=== PATIENT | female | born 1960 ===

== ENCOUNTER 2023-04-18 15:14 | Inpatient (IN) | payer OTHER ==
[~2023-04-18] VITALS: Ht 152.4 cm; Wt 95.3 kg
[2023-04-19] MEDS ORDERED: TOPROL XL50 M1 PO (10:36)
[2023-04-19] MEDS ORDERED: SYNTHROID150 MCG PO (10:36)
[2023-04-29] MEDS ORDERED: PERCOCET 5-3251 EACH PO (15:10)
== END 2023-04-29 16:35 | disposition home or self-care (01) | DRG 329 ==
LOC: SURG 04-21 09:00 → O/R 04-27 11:34 → SURG 04-27 13:24 → SURH 04-28 14:53
PROVIDERS: ADMIT Surgery; ATTEND Surgery
PROC: 0DBP4ZZ Excision of Rectum, Percutaneous Endoscopic Approach (ICD-10-PCS; 2023-04-27)
PROC: 8E0W4CZ Robotic Assisted Procedure of Trunk Region, Percutaneous Endoscopic Approach (ICD-10-PCS; 2023-04-27)
PROC: 0DJD8ZZ Inspection of Lower Intestinal Tract, Via Natural or Artificial Opening Endoscopic (ICD-10-PCS; 2023-04-27)
PROC: 0DTN4ZZ Resection of Sigmoid Colon, Percutaneous Endoscopic Approach (ICD-10-PCS; principal; 2023-04-27 07:00)
DX: K57.20 Diverticulitis of large intestine with perforation and abscess without bleeding (principal); K65.1 Peritoneal abscess; E03.9 Hypothyroidism, unspecified; I10 Essential (primary) hypertension; Z20.822 Contact with and (suspected) exposure to COVID-19